=== PATIENT | male | born 1955 | race Caucasian/White ===

== ENCOUNTER 2022-06-13 11:40 | Outpatient (CLI) | payer MEDICARE, BC, SELFPAY | END 2022-06-13 11:41 | disposition home or self-care (01) | LOC: AMB 07-01 14:15 | PROVIDERS: PCP Internal Medicine Addiction Medicine; Visit Provider Emergency Medicine Emergency Medical Services | DX: T16.9XXA Foreign body in ear, unspecified ear, initial encounter (principal) | CPT/HCPCS: A0425; A0427 ==

== ENCOUNTER 2022-12-16 15:40 | Outpatient (CLI) | payer MEDICARE, BC, SELFPAY | END 2022-12-16 15:41 | disposition home or self-care (01) | PROVIDERS: PCP Family Medicine; Visit Provider Family Medicine | DX: Z00.00 Encounter for general adult medical examination without abnormal findings (principal); E66.01 Morbid (severe) obesity due to excess calories; E78.5 Hyperlipidemia, unspecified; I10 Essential (primary) hypertension; R73.03 Prediabetes; R53.83 Other fatigue | CPT/HCPCS: 80053; 80061; 84443 ==

== ENCOUNTER 2023-02-24 10:00 | Outpatient (RCR) | payer MEDICARE, BC, SELFPAY ==
--- NOTE | 2023-01-10 17:18 | PT.OPEX ---
PT [place] Outpatient Eval PT [facility] Outpatient Eval Start: 01/10/23 13:23 Freq: Status: Active Protocol: Document 01/10/23 13:23 RACHEL (Rec: 01/10/23 13:48 RACHEL [id number]) E-signed By Susan Hoover DPT Physical Therapy Outpatient Evaluation Insurance Information Recert Due Date 04/10/23 Insurance Name Medicare B,Blue Cross/Blue Shield Medical Diagnosis L knee OA Treating Diagnosis L knee pain chronic with occasional acute flare ups, quad/VMO weakness, L patella hypomobile, L patella positioned laterally and tracking laterally, limited tolerance for extended standing/walking/stairs Subjective Subjective Patient reports L knee pain, chronic for years with 2 episodes of acute flare up over the last 6-7 months. He reports initial injury/flare up when he stepped out of a van and his L knee bent back wrong. He had increased pain, difficulty walking. Reports he was traveling at the time and had to sleep in a chair with ice to his knee. The pain resolved and he was able to walk and resume activities the next day. States L knee pain flared up again about a month ago. States he is unsure why but he woke up with pain one morning. Reports he used the TM for some walking the day before the flare up but denies any pain when using the TM. Again the L knee pain resolved in about a day. He reports hx of chronic bilateral knee pain with prior knee injections about 6 years ago. He was issued a velcro knee brace from [employer]ICE Llam[employer]. States he is wearing it some of the time, doesn't really notice a difference with/ without the knee brace. L knee pain has been minimal lately, rated 0-2/10. He is using some pain meds for his chronic back pain but denies taking anything for knee pain. He has not been using ice. [employer]ICE Llamas recommended he try icing but he hasn't tried it yet. He reports pain was up to 9/10 back in Jul and about a month ago when the pain flared up, lasting for about a day. Date of Last Physician Visit 12/22/22 Current Work Status Retired Precautions Treatment Precautions/Contraindications depression, HTN, OA Assessment Assessment/Impression Patient is a 67 year old male with L knee pain chronic with occasional acute flare ups, quad/VMO weakness, L patella hypomobile, L patella positioned laterally and tracking laterally, limited tolerance for extended standing/walking/stairs. Pain range the last several weeks 0-2/10. He denies tenderness with palpation L knee region. L patella with lateral tilt and lateral tracking, hypomobile. L knee ROM 0-0- 130 degrees. L quad/VMO weakness noted with lateral patellar tracking, difficulty with SLR exercise. General core/hip/glut weakness with hx of chronic LBP. Patient reports some difficulty with extended standing/walking/ stairs. Patient would benefit from skilled PT for pain/sx management, core/hip/glut/quad /VMO strengthening, improved L patellar mobility, improved L patellar position/tracking, and establishment of HEP. Plan of Care Rehabilitation Potential Good Physical Therapy Goals 1. Decrease/maintain L knee pain at less than/equal to 3/ 10 with daily activities and with the progression of PT activities over the next 4-6 weeks. 2. Improve core/hip/glut/VMO/ LE strength over the next 8-10 weeks for improved patellar position /tracking, decreased stress to knee joint, and decreased knee pain. 3. Improve balance/ proprioception over the next 8 -10 weeks for improved stability with static/dynamic activities, improved mechanics with daily activities, decreased stress to knee joint, and decreased knee pain. 4. Patient will be I with HEP within 10 weeks for progression toward above goals, ongoing self management of pain/sx, ongoing self improvements in core/hip/glut/LE strength, and for return to PLF including daily activities without flare up of pain. Coordination/Communication With Referral Source Treatment Plan/Direct Interventions Manual Therapy,Therapeutic Exercises Frequency/Duration 1x/week Patient Will Be Discharged From Therapy Completion of LTG(s),Skills Plateau,Independent w/HEP, Independently Progressing Evaluation Billing Untimed Code Treatment Minutes 25 Complexity Moderate Certification Information Initial Certification Date 01/10/23 Ending Certification Date 04/10/23 Provider Signature Shows Agreement With POC & Medical Necessity Physician Signature & Date Requested Please Sign/Date Here Physician Comment/Change : Physician NPI Number #
== END 2023-05-06 14:50 | disposition home or self-care (01) ==
PROVIDERS: PCP Family Medicine; Visit Provider Physician Assistant Surgical
DX: M17.12 Unilateral primary osteoarthritis, left knee (principal); M25.562 Pain in left knee; Z51.89 Encounter for other specified aftercare
CPT/HCPCS: 97110; 97140; 97162

== ENCOUNTER 2023-04-04 07:55 | Outpatient (CLI) | payer MEDICARE, BC, SELFPAY | END 2023-04-04 07:56 | disposition home or self-care (01) | LOC: NFLDREF 16:50 | PROVIDERS: PCP Family Medicine; Referring Provider Family Medicine; Visit Provider Family Medicine | DX: R79.89 Other specified abnormal findings of blood chemistry (principal); R73.03 Prediabetes; E78.5 Hyperlipidemia, unspecified | CPT/HCPCS: 80053; 80061 ==

== ENCOUNTER 2023-05-10 07:05 | Outpatient (CLI) | payer MEDICARE, BC, SELFPAY ==
--- NOTE | 2023-05-10 09:17 | W.ANESCHARGE ---
Anesthesia Charges Start Date/Time Anesthesia Start Date: 05/10/23 Anesthesia Start Time: 08:43 Stop Date/Time Anesthesia Stop Date: 05/10/23 Anesthesia Stop Time: 09:14
== END 2023-05-10 07:06 | disposition home or self-care (01) ==
PROVIDERS: PCP Family Medicine; Visit Provider Surgery
DX: Z12.11 Encounter for screening for malignant neoplasm of colon (principal); K62.1 Rectal polyp; K57.30 Diverticulosis of large intestine without perforation or abscess without bleeding; Z86.010 Personal history of colon polyps
CPT/HCPCS: 45385; 811; 88305; J2704

== ENCOUNTER 2023-05-30 14:30 | Outpatient (RCR) | payer MEDICARE, BC, SELFPAY ==
--- NOTE | 2023-02-10 11:24 | PT.OPEX ---
PT [place] Outpatient Eval PT [facility] Outpatient Eval Start: 02/09/23 09:55 Freq: Status: Active Protocol: Document 02/09/23 09:56 JAMIN (Rec: 02/09/23 17:54 JAMIN Laptop) E-signed By Miracle Becerra PT Physical Therapy Outpatient Evaluation Insurance Information Insurance Name Medicare B,Blue Cross/Blue Shield Insurance Information/Comments MEDICARE/BCBS Medical Diagnosis CHRONIC LUMBAR PAIN/LBP M54.50 Treating Diagnosis CHRONIC PAIN G89.[address] TOO GUILLERMO Subjective Subjective PATIENT REPORTS PAIN IN THE MORNING UPON AWAKENING BUT ONCE I GET MOVING IT'S FINE. HE IS CONCURRENTLY BEING TREATED FOR BILATERAL KNEE PAIN. HE STATES,I GET TO THOSE EXERCISES EVER 2-3 DAYS. I KNOW I SHOULD DO THEM EVERY DAY. LASTLY, HE REPORTS A FALL RECENTLY INJURING HIS RIGHT KNEE. Pain Comments LOWER RIGHT FLANK/LUMBAR REGION 03/12 Date of Last Physician Visit 01/18/23 Current Work Status Retired Preferred Name MARIAMA Objective Other/Pertinent Objective Posture Assessment: SLIGHT FWD TRUNK POSTURING, DECREASED LORDOTIC CURVATURE LUMBAR ROM Flexion: WFL UNREMARKABLE repeated flexion: UNREMARKABLE Extension:WFL repeated ext: UNREMARKABLE Right Sidebend: WFL Left Sidebend: WFL LE MMT Hip flexion: R 4+/5 L 4+/5 Hip Extension: R 4/5 L 4/5 Hip abduction: R 4/5 L 4/5 knee extension: R 4+/5 L 4+/5 Knee Flexion: R 4+/5 L 4+/5 Dorsiflexion/heel walk: R 4+/5 L 4+/5 Plantarflexion/toe walk: R 4+/ 5 L 4+/5 Great Toe Extension: R 5/5 L 5 /5 JOINT MOBILITY/PALPATION: GENERALIZED HYPOMOBILITY ABOUT THE LUMBAR VERTEBRA SPECIAL TESTS Straight leg raise: (-) Crossed straight leg raise: (- ) Slump test: (-) Quadrant test: (-) SI/HIPI tests YOSI (-) FADIR (-) SCOUR (-) Gillet Test: (-) Standing forward bend Test: (- ) Gapping and Compression test: (-) TX: PRONE ON ELBOWS X 2MIN PRONE PRESS UPS X 10 HOLD 2 SEC PRONE ALT LE EXT X 10 HOLD 3 SEC STDG EXT 10 X 3 SEC PELVIC ROCKING IN SEATED OR STDG X 10 HOLD 2 SEC Assessment Assessment/Impression PATIENT IS A [address] GUILLERMO REFERRED TO PHYSICAL THERAPY FOR A SECOND DIAGNOSIS OF CHRONIC LOW BACK PAIN TO EVALUATE AND TREAT. PMHX INCLUDE BUT NOT LIMITED TO PRE DMII, CHRONIC CAREGIVER STRESS, ANXIETY, DEPRESSION, HLD, HTN, OBESITY, GLAUCOMA BPH W/URINARY OBSTRUCTION HISTORY, JOSE, OA BILATERAL KNEES, 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 PATIENT IS HERE TODAY D/T CHRONIC LBP WHICH HE DESCRIBES WORSE IN THE MORNING AND FIRST STEPS BUT IS ABLE TO HAVE SYMPTOM RESOLUTION WITHIN ROUGHLY 10- 15 MIN WELL WITH PROLONGED STDG >30 MIN WHEN STDG DURING COOKING. HE IS CONCURRENTLY BEING TREATED FOR BILATERAL KNEE OA AND HAS RECENTLY EXPERIENCED A FALL ON HIS RIGHT KNEE. HE DEMONSTRATES EXCELLENT ROM AND FLEXIBILITY WITH GENERALIZED HYPOMOBILITY OF THE LUMBAR VERTEBRAE NOTING A DECREASED LORDOTIC CURVATURE. THERE ARE NO PROVOCATIONS TEST THAT ELICIT ANY SYMPTOMS THAT BROUGHT HIM HERE TODAY. WE DISCUSSED INCLUDING A WALKING PROGRAM TO HIS REGIME WELL COMPLIANCE WITH HIS CURRENT REHABILITATION PROGRAM INVOLVING HIS KNEES. TODAY, I HAD HIM BEING WORK ON IMPROVING HIS LUMBAR MOBILITY ABOUT THE SPINE ALONG WITH GENERALIZED TRUNK STRETCHING OF THE LOWER LUMBAR REGION AND THORACIC PARASPINALS. HE DOES NOT PARTICULARLY CARE FOR SUPINE LYING THIS INCREASES THE DISCOMFORT ABOUT HIS LUMBAR REGION SO PRONE IS WHAT WE DEFAULTED TO FOR MOBILITY COUPLED WITH THORACIC ROTATION AND PELVIC ROCKING IN SEATED AND/OR STDG. HE PERFORMED EA OF HIS HOME PROGRAM EXERCISES WELL AND WILL ADD TO THIS REGIME HIS NEXT VISIT. PATIENT VERBALIZED UNDERSTANDING OF ALL SKILLED INSTRUCTION AND EDUCATION PROVIDED TODAY AND AGREEABLE TO POC AND FREQ. HE IS APPROPRIATE FOR SKILLED PHYSICAL THERAPY TO ADDRESS TEACHING BACK CARE RULES/ PRECAUTIONS, IMPROVE FUNCTIONAL CORE STRENGTH AND MOBILIZATION OF LUMBAR SPINE. Primary Functional Limitations PROLONGED STDG BED MOBILITY WALKING Plan of Care Rehabilitation Potential Good Physical Therapy Goals 1. PATIENT WILL BE ABLE TO STAND FOR >30 MIN WITH PAIN <2 /10 TO PREPARE MEALS IN 4-6 WEEKS 2. PATIENT WILL DEMONSTRATE COMPLIANCE AND CONSISTENCY WITH HIS HEP AND BE ABLE TO INDEPENDENTLY PROGRESS IN 4-6 WEEKS. 3. PATIENT WILL BE ABLE TO AMB FOR >15 MIN WITH PAIN <2/10 FOR EXERCISE IN 4-6 WEEKS. Coordination/Communication With Referral Source Treatment Plan/Direct Interventions Heat,Ice/Cold/Vasopneumatic, Manual Therapy,Therapeutic Activities,Therapeutic Exercises Frequency/Duration 1X/WK FOR 4-6 WEEKS Patient Will Be Discharged From Therapy Completion of LTG(s), Independently Progressing Discharge Plan Comments DISCHARGE TO SELF WHEN GOALS MET OR MAX POTENTIAL ACHIEVED Evaluation Billing Untimed Code Treatment Minutes 20 PT Eval No Charge No Complexity Moderate Certification Information Provider Signature Shows Agreement With POC & Medical Necessity Physician Signature & Date Requested Please Sign/Date Here Physician Comment/Change : Physician NPI Number #
--- NOTE | 2023-05-30 15:35 | PT.OPDNX ---
PT [place] Outpatient RECERTIFICATIN/DISCHARGE NOTE PT [facility] Outpatient Daily Note Start: 02/09/23 09:55 Freq: Status: Active Protocol: Document 05/30/23 14:35 JAMIN (Rec: 05/30/23 15:34 JAMIN [id number]) E-signed By Miracle Becerra, PT PT OP Daily Progress Note Visit Information Note Type Daily Note,Recert/Progress Note Visit Number 10 Insurance Information Insurance Name Medicare B,Blue Cross/Blue Shield Insurance Information/Comments MEDICARE/BCBS Medical Diagnosis CHRONIC LUMBAR PAIN/LBP M54.50 Treating Diagnosis CHRONIC PAIN G89.[address] TOO GUILLERMO Subjective Pain Comments 11/12 Preferred Name MARIAMA Objective Other/Pertinent Objective Posture Assessment: SLIGHT FWD TRUNK POSTURING, DECREASED LORDOTIC CURVATURE LUMBAR ROM Flexion: WFL UNREMARKABLE repeated flexion: UNREMARKABLE Extension:WFL repeated ext: UNREMARKABLE Right Sidebend: WFL Left Sidebend: WFL LE MMT Hip flexion: R 4+/5 L 4+/5 Hip Extension: R 4/5 L 4/5 Hip abduction: R 4/5 L 4/5 knee extension: R 4+/5 L 4+/5 Knee Flexion: R 4+/5 L 4+/5 Dorsiflexion/heel walk: R 4+/5 L 4+/5 Plantarflexion/toe walk: R 4+/ 5 L 4+/5 Great Toe Extension: R 5/5 L 5 /5 JOINT MOBILITY/PALPATION: GENERALIZED HYPOMOBILITY ABOUT THE LUMBAR VERTEBRA SPECIAL TESTS Straight leg raise: (-) Crossed straight leg raise: (- ) Slump test: (-) Quadrant test: (-) SI/HIPI tests YOSI (-) FADIR (-) SCOUR (-) Gillet Test: (-) Standing forward bend Test: (- ) Gapping and Compression test: (-) Patient Instructed in Risks/Benefits Yes Therapeutic Exercise Therapeutic Exercise Minutes (minutes) 45 Therapeutic Exercise: To Restore TM 2.0 MPH 5 MIN Functional Status SUPINE TRUNK ROTATION 3 X 15 SEC SUPINE HOOKLYING ABD BRACING WITH HIP ADD SQUEEZE X 1MIN HOLD 3 SEC SUPINE HOOKLYING ADD SQUEEZE W /BRIDGE 1MIN HOLD 3 SEC STDG EXT X 10 HOLD 3 SEC STDG TB (BLUE) ROW 2 X 15 HOLD 3 SEC STDG TB (GREEN) S'EXT 2 X 15 HOLD 3 SEC TRUNK EXT 2 X 15 50# QUADRUPED CAT COW INTO CHILD'S POSE X 10 STDG HIP ABD R/L X 15 STDG HIP FLEX R/L X 15 STDG HIP EXT R/L X 15 STDG R/L CIRCLES SIDE STEP R/L 20FT X 3 Treatment Minutes Timed Code Treatment Minutes 45 Total Treatment Time 45 Billing Units Therapeutic Exercise Units 3 Plan of Care Physical Therapy Goals 1. PATIENT WILL BE ABLE TO STAND FOR >30 MIN WITH PAIN <2 /10 TO PREPARE MEALS IN 4-6 WEEKS; GOAL MET 2. PATIENT WILL DEMONSTRATE COMPLIANCE AND CONSISTENCY WITH HIS HEP AND BE ABLE TO INDEPENDENTLY PROGRESS IN 4-6 WEEKS. GOAL MET 3. PATIENT WILL BE ABLE TO AMB FOR >15 MIN WITH PAIN <2/10 FOR EXERCISE IN 4-6 WEEKS. GOAL MET Daily Plan of Care Change POC; See Comments, Discharge Daily Plan of Care Comments PATIENT MISSED HIS LAST APPT SCHEDULED OF DISCHARGE AND RETURNS TODAY. Recertification Information Initial Certification Date 02/10/23 Recertification Start Date 05/30/23 Recertification Due Date 05/30/23 Reasons to Continue Skilled Therapy REVIEW AND PERFORM HIS HEP WITH INSTRUCTION REGARDING PROGRESSION OF THER EX. Rehabilitation Potential GREAT Provider Signature Shows Agreement With POC & Medical Necessity Discharge Note Discharge Summary PATIENT RETURNS TODAY HAVING BEEN ON HIS OWN FOR THE PAST MONTH D/T SCHEDULING CHALLENGES. HE REPORTS CONTINUED GREAT MGMT OF HIS SYMPTOMS AND HAS RECENTLY BEGAN A SUPERVISING EDITOR TRAILER JOB AND WORKING ON MANAGING HIS TIME BETTER TO INCORPORATE HIS EXERCISES AT [address] [place] [address] AND HOME . HE STATES, ?THE EXERCISES HAVE REALLY HELPED ME A LOT.? HE HAS RESUMED WALKING FOR EXERCISE AND REPORTS A 2-3/10 PAIN ON AVERAGE. HE HAS A COMPREHENSIVE PROGRAM TO ADDRESS BLE/CORE STRENGTHENING , SELF MOBILIZATION, AND CARDIOVASCULAR CONDITIONING. HE IS INSTRUCTED TO RETURN SHOULD HE HAVE ANY ISSUES BUT WILL BE OFFICIALLY DISCHARGED TODAY WITH ALL GOALS MET. HE IS IN COMPLETE AGREEMENT WITH PLANS. Date of First Visit for Therapy 02/10/23 Date of Last Visit for Therapy 05/30/23 Initial Primary Functional Limitations BENDING STDG WALKING BED MOBILITY Initial Pain Level 6-7/10 Pain Level at Discharge 2-3/10 Interventions Provided During Treatment Joint Mobilization,Manual Therapy,Neuromuscular Re-Ed, Therapeutic Activities, Therapeutic Exercise Recommendations/Reason for Discharge Met All Therapy Goals Discharge Instructions CONTINUE WITH YOUR HEP AND F/U NEEDED WITH YOUR PHYSICIAN Thank You For This Referral .
== END 2023-06-16 11:10 | disposition home or self-care (01) ==
PROVIDERS: PCP Family Medicine; Visit Provider Family Medicine
DX: M54.50 Low back pain, unspecified (principal); G89.29 Other chronic pain; Z51.89 Encounter for other specified aftercare
CPT/HCPCS: 97110; 97140; 97162

== ENCOUNTER 2023-12-20 21:24 | Emergency (ER) | payer MEDICARE, BC, SELFPAY ==
[2023-12-20 21:29] VITALS: BP 128/76; PULSE 74; RESP 18; TEMP 36.6; O2SAT 92; BMI 36.6
[2023-12-20 21:59] LABS: Appearance Urine Slightly Cloudy (Clear); Bilirubin Urine Negative (Negative); Blood Urine 3+ (Negative); Color Urine Yellow (Yellow); Glucose Urine Negative (Negative); Ketones Urine Negative (Negative); Leukocyte Esterase Urine Negative (Negative); Nitrite Urine Negative (Negative); Protein Urine Trace (Negative); Urobilinogen Urine 0.2 (0.2-1.0); pH Urine 5.5 (5.0-8.5)
[2023-12-20 22:35] LABS: Chloride* 107 mmol/L (96-114); Sodium* 139 mmol/L (135-149)
[2023-12-20 22:38] LABS: Anion Gap 3 mEq/L (7-15); Blood Urea Nitrogen* 28 mg/dL (7-30); Carbon Dioxide* 29 mmol/L (20-32); Creatinine* 1.5 mg/dL (0.5-1.5); Est. Creatinine Clearance* 43.45; Estimated Glomerular Filt Rate 50 ml/min; Glucose* 98 mg/dL (60-115)
[2023-12-20 22:39] LABS: Calcium* 9.3 mg/dL (8.4-10.6)
--- NOTE | 2023-12-20 23:13 | ED.MALEGU ---
HPI - Male Genitourinary General Date Seen: 12/20/23 Chief complaint: Urogenital Problems, Male Stated complaint: Urine in blood Time Seen by Provider: 12/20/23 21:37 Source: patient Mode of arrival: ambulatory Limitations: no limitations History of Present Illness HPI Narrative: Patient is a 68-year-old male who had an episode of hematuria earlier today. When he urinated here in the department he continues to have some bright red blood in his urine. He has absolutely no symptoms. No dysuria, urgency, frequency. No fevers or chills. No back pain or suprapubic pain. He has a history of BPH and a laser TURP. He has had prostate biopsies for an elevated PSA with negative results. No recent injury to his genitalia. He has no testicular pain. He feels that he gets enough to drink. He is a former alcoholic who is treated with Topamax. Related Data Home Medications Medication Instructions Recorded Confirmed bupropion HCl 200 mg tablet,12 hr 200 mg PO QDAY 05/10/22 12/20/23 sustained-release timolol 0.5 % eye drops 1 drp ophthalmic (eye) QDAY 05/10/22 12/20/23 trazodone 50 mg tablet 50 mg PO QDAY 05/10/22 12/20/23 Saccharomyces boulardii 250 mg 250 mg PO BID 12/16/22 12/20/23 capsule (Digest Probiotic (S.boulardii)) multivitamin (Daily Multi-Vitamin 1 tab PO QAM 12/16/22 12/20/23 tablet) turmeric root extract 500 mg 500 mg PO BID 12/16/22 12/20/23 capsule omega-3 fatty acids 1,250 mg 2,500 mg PO QDAY 01/18/23 12/20/23 capsule fluticasone propionate 50 1 spray intranasal QDAY 02/14/23 12/20/23 mcg/actuation nasal spray,suspension Previous Rx's Medication Instructions Recorded chlorthalidone 25 mg tablet 12.5 mg (1/2 x 25 mg) PO QDAY #90 04/06/23 tabs atorvastatin 20 mg tablet 20 mg PO QDAY #90 tabs 07/26/23 topiramate 25 mg tablet 25 mg PO BID #60 tabs 08/01/23 topiramate 50 mg tablet 50 mg PO BID #60 tabs 08/01/23 ciprofloxacin HCl 500 mg tablet 500 mg PO BID #10 tabs 12/20/23 Allergies Allergy/AdvReac Type Severity Reaction Status Date / Time ragweed pollen Allergy Mild Verified 12/20/23 21:35 sulfamethoxazole Allergy Unknown Rash Verified 12/20/23 21:35 [From Bactrim] trimethoprim [From Bactrim] Allergy Unknown Rash Verified 12/20/23 21:35 Review of Systems Narrative: Review of systems is outlined above otherwise noted to be negative. [facility] Medical History (Updated 12/20/23 @ 23:12 by Guillaume Summers MD) Osteoarthritis of patellofemoral joints of both knees ?M17.0 - Bilateral primary osteoarthritis of knee (ICD-10) Prediabetes ?R73.03 - Prediabetes (ICD-10) Caregiver stress ?Z63.6 - Dependent relative needing care at home (ICD-10) Anxiety ?F41.9 - Anxiety disorder, unspecified (ICD-10) History of diverticulitis ?Z87.19 - Personal history of other diseases of the digestive system (ICD-10) Tinea versicolor ?B36.0 - Pityriasis versicolor (ICD-10) Hyperlipidemia ?E78.5 - Hyperlipidemia, unspecified (ICD-10) Essential hypertension ?I10 - Essential (primary) hypertension (ICD-10) Morbid obesity ?E66.01 - Morbid (severe) obesity due to excess calories (ICD-10) JOSE (obstructive sleep apnea) ?G47.33 - Obstructive sleep apnea (adult) (pediatric) (ICD-10) Seasonal allergies ?J30.2 - Other seasonal allergic rhinitis (ICD-10) Rosacea ?L71.9 - Rosacea, unspecified (ICD-10) Primary osteoarthritis of both knees ?M17.0 - Bilateral primary osteoarthritis of knee (ICD-10) Conductive hearing loss ?H90.2 - Conductive hearing loss, unspecified (ICD-10) Benign prostatic hyperplasia with urinary obstruction ?N40.1 - Benign prostatic hyperplasia with lower urinary tract symptoms (ICD-10) ?N13.8 - Other obstructive and reflux uropathy (ICD-10) Depression ?F32.A - Depression, unspecified (ICD-10) Glaucoma ?H40.9 - Unspecified glaucoma (ICD-10) Alcohol use disorder ?F10.90 - Alcohol use, unspecified, uncomplicated (ICD-10) Surgical History (Updated 02/25/23 @ 12:26 by Rakel Olivas) Hx of eye surgery (1999) ?Z98.890 - Other specified postprocedural states (ICD-10) History of local excision of skin lesion (11/25/20) ?Z98.890 - Other specified postprocedural states (ICD-10) History of tonsillectomy (1960) ?Z90.89 - Acquired absence of other organs (ICD-10) History of cataract surgery (1999) ?Z98.49 - Cataract extraction status, unspecified eye (ICD-10) History of appendectomy (1959) ?Z90.49 - Acquired absence of other specified parts of digestive tract (ICD-10) History of transurethral resection of prostate (2015) ?Z98.890 - Other specified postprocedural states (ICD-10) ?Z90.79 - Acquired absence of other genital organ(s) (ICD-10) History of hemicolectomy (2011) ?Z90.49 - Acquired absence of other specified parts of digestive tract (ICD-10) History of colonoscopy (2017) ?Z98.890 - Other specified postprocedural states (ICD-10) Family History Mother Alcohol dependence Brother Alcohol dependence Maternal Grandfather Coronary artery disease Myocardial infarction, Onset Age: 70 Maternal Grandmother Stroke Father Adrenal gland cancer Sister Gastrointestinal stromal tumor Social History (Updated 12/16/22 @ 16:38 by Cherie Garcia MD) Narrative: to , retired small business salesperson women's dresses, no children. has traumatic brain injury Lifetime nonsmoker Alcoholism, currently cutting down just 6 alcoholic drinks a week No regular exercise Smoking Status: Never smoker Do you use any of these nicotine containing products: None Second hand tobacco smoke exposure: No How often do you have a drink containing alcohol: 4 or more times a week How many standard drinks containing alcohol do you have on a typical day: 5 or 6 AUDIT-C Alcohol total score: 6 Non-prescribed substance use: denies use Little interest or pleasure in doing things: several days Feeling down, depressed, or hopeless: several days Exam Narrative: Exam Narrative: Vitals noted. Lungs: Clear to auscultation in all chaves. No wheezes, rales, rhonchi. Heart: Regular rate and rhythm without murmur. Abdomen: Soft and nontender. No guarding, rigidity, rebound. Bowel sounds are normal. No palpable masses. No CVA or suprapubic tenderness. Extremities: No cyanosis or edema. Good distal pulses. Skin: No abnormalities noted of the exposed skin. Neurologic: Awake, alert, fully oriented. Neurologic exam is nonfocal. Const: Vital Signs, click to edit/add: Vital Signs - 24 hr 12/20/23 21:29 Temperature 97.8 F Pulse Rate [Pulse Oximeter] 74 Respiratory Rate 18 Blood Pressure [Ri ght Upper Arm] 128/76 Pulse Oximetry 92 Oxygen Delivery Me thod Room Air Course Course ED Course: Patient seen and examined. His urinalysis shows 3+ blood with 10-25 red blood cells, 2-5 white cells, no bacteria. Basic metabolic panel is normal. CBC was ordered but the machine is currently down. Reevaluation(s) Reevaluation #1: We had a good discussion regarding possibilities for gross hematuria. With the absence of pain and dysuria is possible that this is just asymptomatic bleeding from the prostate bed. Will cover him with antibiotics for five days and have him stay hydrated. If the hematuria is persistent he will need a CT scan of his kidneys and a cystoscopy. We discussed that if this episode resolves and he has further episodes in the future he should have those same test done to rule out malignancy. He does have a urologist that he last saw about eight months ago. Vital Signs Vital signs: Initial Vital Signs Temperature 97.8 F 12/20/23 21:29 Temperature Source Temporal Artery Scan 12/20/23 21:29 Pulse Rate 74 12/20/23 21:29 Respiratory Rate 18 12/20/23 21:29 Blood Pressure 128/76 12/20/23 21:29 Blood Pressure Mean 93 12/20/23 21:29 Blood Pressure Position Sitting 12/20/23 21:29 Pulse Oximetry 92 12/20/23 21:29 Oxygen Delivery Method Room Air 12/20/23 21:29 Vital Signs Temperature 97.8 F 12/20/23 21:29 Pulse Rate 74 12/20/23 21:29 Respiratory Rate 18 12/20/23 21:29 Blood Pressure 128/76 12/20/23 21:29 Pulse Oximetry 92 12/20/23 21:29 Oxygen Delivery Method Room Air 12/20/23 21:29 Temperature 97.8 F 12/20/23 21:29 Pulse Rate 74 12/20/23 21:29 Respiratory Rate 18 12/20/23 21:29 Blood Pressure 128/76 12/20/23 21:29 Pulse Oximetry 92 12/20/23 21:29 Oxygen Delivery Method Room Air 12/20/23 21:29 MDM - Male Genitourinary Lab Data Labs: Lab Results 12/20/23 12/20/23 Range/Units 21:40 21:53 Sodium 139 (135-149) mmol/L Potassium 4.0 (3.6-5.1) mmol/L Chloride 107 (96-114) mmol/L Carbon Dioxide 29 (20-32) mmol/L Anion Gap 3 L (7-15) mEq/L BUN 28 (7-30) mg/dL Creatinine 1.5 (0.5-1.5) mg/dL Estimated Creat Clear 43.45 Estimated GFR 50 ml/min Glucose 98 (60-115) mg/dL Calcium 9.3 (8.4-10.6) mg/dL Urine Color Yellow (Yellow) Urine Appearance Slightly Cloudy A (Clear) Urine pH 5.5 (5.0-8.5) Ur Specific Douglas 1.020 (1.000-1.030) Urine Protein Trace A (Negative) Urine Glucose (UA) Negative (Negative) Urine Ketones Negative (Negative) Urine Blood 3+ A (Negative) Urine Nitrite Negative (Negative) Urine Bilirubin Negative (Negative) Urine Urobilinogen 0.2 (0.2-1.0) Ur Leukocyte Esterase Negative (Negative) Urine RBC 10-25 A (0-2) Urine WBC 2-5 (0-5) Ur Squamous Epith Cells None (None-Few) Urine Bacteria None (None) Discharge Plan Discharge Clinical Impression: Hematuria Patient Disposition: Home, Self-Care Condition: Stable Additional Instructions: Push fluids. Cipro 500 mg twice a day for five days. If the hematuria persists please contact Dr. Garcia to discuss a CT of your kidneys and a visit to the urologist for a cystoscopy. If you have a 2nd episode of hematuria in the future I would suggest those two tests as well. Will contact you if your urine culture shows evidence of infection. Prescriptions: New ciprofloxacin HCl 500 mg tablet 500 mg PO BID Qty: 10 0RF No Action bupropion HCl 200 mg tablet sustained-release 12 hr 200 mg PO QDAY trazodone 50 mg tablet 50 mg PO QDAY timolol 0.5 % drops 1 drp ophthalmic (eye) QDAY Saccharomyces boulardii [Digest Probiotic (S.boulardii)] 250 mg capsule 250 mg PO BID multivitamin [Daily Multi-Vitamin] Tablet 1 tab PO QAM turmeric root extract 500 mg capsule 500 mg PO BID fluticasone propionate 50 mcg/actuation spray,suspension 1 spray intranasal QDAY Rx Instructions: administer into each nostril chlorthalidone 25 mg tablet 12.5 mg PO QDAY Qty: 90 4RF topiramate 25 mg tablet 25 mg PO BID Qty: 60 2RF topiramate 50 mg tablet 50 mg PO BID Qty: 60 2RF omega-3 fatty acids 1,250 mg capsule 2,500 mg PO QDAY atorvastatin 20 mg tablet 20 mg PO QDAY Qty: 90 2RF Follow Up/Referrals: Cherie Garcia MD [Primary Care Provider] - Stand Alone Forms: [facility] Info Instructions
[2023-12-20 23:31] LABS: Basophils Absolute Auto 0.01 K/uL (0.00-0.30); Basophils Percent Auto 0.1 % (0.0-3.0); Eosinophils Absolute Auto 0.16 K/uL (0.00-0.50); Eosinophils Percent Auto 1.8 % (0.0-7.0); Hematocrit 49.1 % (37.0-53.0); Hemoglobin* 16.2 gm/dL (13.5-17.5); Immature Granulocytes Abs Auto 0.07 K/uL (0.00-0.30); Immature Granulocytes Pct Auto 0.8 %; Lymphocytes Absolute Auto 3.61 K/uL (0.90-2.90); Lymphocytes Percent Auto 39.6 % (20-44); Mean Corpuscular HGB Conc 33 gm/dL (32-36); Mean Corpuscular Hemoglobin 30 pg (26-34); Mean Corpuscular Volume 91 fL (80-100); Monocytes Percent Auto 8.4 % (0.0-11.0); Neutrophils Percent Auto 49.3 % (42.0-72.0); Platelet Count* 249 K/uL (140-440); RDW Coefficient of Variation % 13.4 % (11.5-15.5); Red Blood Count 5.37 m/uL (4.30-5.90); White Blood Count* 9.12 K/uL (4.50-11.00)
[2023-12-20 23:34] LABS: Slide Review Reflex No
== END 2023-12-20 23:29 | disposition home or self-care (01) ==
PROVIDERS: Emergency Provider Family Medicine; PCP Family Medicine
DX: R31.9 Hematuria, unspecified (principal)
CPT/HCPCS: 36415; 80048; 81001; 81003; 85025; 99282; 99283

== ENCOUNTER 2024-03-08 15:56 | Outpatient (CLI) | payer MEDICARE, BC, SELFPAY ==
--- OUTSIDE RECORDS SUMMARY | 2024-03-08 16:00 | XMS_ITS | Clinical Summary ---
Author Organization [facility] Address [address] [address] Care Team Providers Care Book Store Associate Name Role Phone John Waters DO Primary Care Provider + Allergies Active Allergy Reactions Criticality Noted Date Comments Fluticasone Other (See Comments) 08/09/2016 Nose bleeds Sulfamethoxazole-Trimethopr im Rash Low 06/19/2017 Medications Medication Sig Dispensed Refills Start Date End Date Status MEDICATION CANNOT BE REORDERED - PLEASE MANUALLY REORDER AND DISCONTINUE THE OLD ORDER [OMEGA-3 FATTY ACIDS-VITAMIN E (FISH OIL) 1,000 MG CAP] Take 3 capsules by mouth daily. 09/14/2014 Active traZODone (DESYREL) 50 MG tablet [TRAZODONE (DESYREL) 50 MG TABLET] Take 50 mg by mouth bedtime. PRN 09/14/2014 Active timolol maleate (TIMOPTIC) 0.5 % ophthalmic solution [TIMOLOL MALEATE (TIMOPTIC) 0.5 % OPHTHALMIC SOLUTION] PALCE 1 DROP OU QAM 3 01/14/2017 Active L.acidoph,saliva-B. bif-S.therm (ACIDOPHILUS PROBIOTIC BLEND) 175 mg cap [L.ACIDOPH,SALIVA-B .BIF-S.THERM (ACIDOPHILUS PROBIOTIC BLEND) 175 MG CAP] Take 175 mg by mouth daily. 10/09/2012 Active PROPYLENE GLYCOL (SYSTANE BALANCE OPHT) [PROPYLENE GLYCOL (SYSTANE BALANCE OPHT)] Apply 1 drop to the affected eye(s) as needed (DRY EYES) 10/07/2017 Active fluticasone (FLONASE) 50 mcg/actuation nasal sprayIndications:Ch ronic allergic rhinitis, unspecified seasonality, unspecified trigger,Cough [FLUTICASONE (FLONASE) 50 MCG/ACTUATION NASAL SPRAY] Two sprays each nostril daily. 16 g 12 01/06/2018 Active buPROPion (WELLBUTRIN SR) 200 MG 12 hr tablet [BUPROPION (WELLBUTRIN SR) 200 MG 12 HR TABLET] Take 200 mg by mouth daily. 08/30/2018 Active folic acid/multivit-min/l utein (CENTRUM SILVER ORAL) [FOLIC ACID/MULTIVIT-MIN/L UTEIN (CENTRUM SILVER ORAL)] Take 1 capsule by mouth Daily at 8:00 am.. 07/27/2019 Active clotrimazole-betame thasone (LOTRISONE) creamIndications:Ti natalee corporis [CLOTRIMAZOLE-BETAM ETHASONE (LOTRISONE) CREAM] Apply 1 application topically as needed. Apply to affected areas on hands. 30 g 1 10/31/2020 Active naproxen (NAPROSYN) 500 MG tabletIndications:L umbosacral spondylosis without myelopathy,Myofasci al pain,Anterolisthesi s of lumbar spine Take 1 tablet (500 mg) by mouth 2 times daily (with meals) 60 tablet 1 12/02/2021 Active cetirizine (ZYRTEC) 10 MG tabletIndications:S easonal allergies TAKE 1 TABLET(10 MG) BY MOUTH DAILY 90 tablet 3 04/08/2022 Active Resolved Problems Problem Noted Date Diagnosed Date Resolved Date Right knee pain 04/21/2020 05/21/2020 Obesity (BMI 35.0-39.9) with comorbidity 06/16/2018 08/30/2018 Immunizations Name Administration Dates Next Due Flu, Unspecified 07/22/2011, 0,07/02/2008,2006 Influenza (High Dose) 3 mukesh nt vaccine 06/11/2019 Influenza Vaccine 65+ (Fluzone HD) 06/23/2020 Influenza Vaccine >6 months,quad, PF 07/21/2018, 07/25/2013 Influenza Vaccine, 6+MO IM (QUADRIVALENT W/PRESERVATIVES) 06/27/2017,06/30/2015,08/07/2014 MMR 06/27/2017,05/27/2017 Pneumo Conj 13-V (2010&after) 06/23/2020 Pneumococcal 23 valent 05/02/2019 TDAP (Adacel,Boostrix) 06/09/2011 Zoster recombinant adjuvante d (SHINGRIX) 11/29/2018,09/08/2018 Zoster vaccine, live 06/30/2015 Family History Medical History Relation Comments Alcoholism Brother 1 Obesity Brother 1 Pancreatitis Brother 2 Cancer Father adrenal gland Obesity Father Heart Disease Maternal Grandfather Heart Disease Maternal Grandmother Alcoholism Mother Obesity Mother Cancer Sister gist cancer Obesity Sister Relation Status Comments Brother 1 Brother 2 Alive Brother 3 Father Maternal Grandfather Maternal Grandmother Mother Sister Social History Tobacco Use Types Packs/Day Years Used Date Smoking Tobacco: Never Smokeless Tobacco: Never Alcohol Use Standard Drinks/Week Comments Yes 21 (1 standard drink = 0.6 oz pu re alcohol) PHQ-2 Answer Date Recorded PHQ-2 Score 0 06/23/2020 Adolescent Education Answer Date Record ed Getting School Help Needed Not on file 07/02 Sex and Gender Information Value Date Recorded Sex Assigned at Male 12/26/2020 1:24 AM CDT Gender Identity Male 12/26/2020 1:24 AM CDT Sexual Orientation Barriga 06/19/2020 3: 12 PM CDT Last Filed Vital Signs Vital Sign Reading Time Taken Comments Blood Pressure 145/84 12/29/2021 3:28 PM CDT Pulse 79 12/29/2021 3:28 PM CDT Temperature 36.7 ??C (98.1 ??F) 12/02/2021 3:14 PM CS T Respiratory Rate 12 10/31/2020 3:02 PM LOGISTICS PLANNING ENGINEER Oxygen Saturation 95% 12/29/2021 3:28 PM CDT Inhaled Oxygen Concentration - - Weight 119.6 kg (263 lb 9.6 oz) 12/02/2021 3:14 PM LOGISTICS PLANNING ENGINEER Height 170.2 cm (5' 7) 12/02/2021 3:14 PM LOGISTICS PLANNING ENGINEER Body Mass Index 41.29 12/02/2021 3:14 PM LOGISTICS PLANNING ENGINEER Plan of Treatment Health Maintenance Due Date Last Done Comments ANNUAL REVIEW OF HM ORDERS 1954 CT COLONOGRAPHY 1954 FIT 1955 FLEX SIG 1954 sDNA (Cologuard) 1955 RSV VACCINE ( & 60+) (1 - 1-dose 60+ series) 2014 MENTAL HEALTH TX PLAN 03/04/2020 04/03/2019 JERICA ASSESSMENT 04/03/2020 04/03/2019, 04/03/2019 DTAP/TDAP/TD IMMUNIZATION (2 - Td or Tdap) 06/09/2021 06/09/2011 FALL RISK ASSESSMENT 06/23/2021 06/23/2020, 04/14/2020, 06/11/2019 PHQ-9 06/23/2021 06/23/2020, 0306/2020, 04/03/2019, Additional history exists COLONOSCOPY 02/22/2023 02/22/2018, 10/24/2007 COLORECTAL CANCER SCREENING 02/22/2023 MEDICARE ANNUAL WELLNESS VISIT 03/29/2023 03/29/2022, 06/23/2020, 06/23/2020, Additional history exists COVID-19 Vaccine ( season) 2023 09/04/2021, 12/26/2020, 11/28/2020 GLUCOSE 06/23/2023 06/23/2020, 06/05, 08/31/2018 PHQ-2 (once per calendar year) 2023 06/23/2020, 06/23/2020, 12/10/2019, Additional history exists INFLUENZA VACCINE (Season Ended) 2024 06/23/2021, 06/23/2020, 06/11/2019, Additional history exists ADVANCE CARE PLANNING 06/23/2025 06/23/2020 , 09/27/2019, 06/11/2019, Additional history exists LIPID 06/23/2025 06/23/2020, 06/05, 08/31/2018, Additional history exists ZOSTER IMMUNIZATION Completed 11/29/2018, 09/08/2018, 06/30/2015 HEPATITIS C SCREENING Completed 07/02/2019 Pneumococcal Vaccine: 65+ Years Completed 06/23/2020, 05/02/2019 HPV IMMUNIZATION Aged Out No longer e ligible based on patient's age to complete this topic IPV IMMUNIZATION Aged Out No longer e ligible based on patient's age to complete this topic MENINGITIS IMMUNIZATION Aged Out No l onger eligible based on patient's age to complete this topic RSV MONOCLONAL ANTIBODY Aged Out No l onger eligible based on patient's age to complete this topic Procedures Procedure Name Priority Date/Time Associated Diagnosis Comments BASIC METABOLIC PANEL Routine 06/23/2020 10:11 AM CDT LIPID PROFILE Routine 06/23/2020 10:11 AM CDT HEPATITIS C ANTIBODY Routine 07/02/2019 8:20 AM CDT COLONOSCOPY - HIM SCAN 02/22/2018 from Last 3 Months or Most Recently Relevant to Health Maintenance Results * (ABNORMAL) Lipid Profile (06/23/2020 10:11 AM CDT) Cholesterol 209(H) <=199 mg/dL 07/07/2020 6:31 PM CDT Triglycerides 83 <=149 mg/dL 07/07/2020 6:31 PM CDT Direct Measure HDL 53 >=40 mg/dL 2019 6:31 PM CDT LDL Cholesterol Calculated 139(H) <=129 mg/dL 07/07/2020 6:31 PM CDT Patient Fasting > 8hrs? Yes 07/07/2020 6:31 PM CDT Blood specimen (specimen) ARTERIAL STRUCTURE / Unknown Venipuncture / Unknown 06/23/2020 10:11 AM CDT 06/23/2020 3:52 PM CDT John Wtaers DO LAB - BLOOD [facility] * Basic metabolic panel (06/23/2020 10:11 AM CDT) Sodium 141 136 - 145 mmol/L 07/07/2020 6:31 PM CDT Potassium 4.8 3.5 - 5.0 mmol/L 07/07/2020 6:31 PM CDT Chloride 107 98 - 107 mmol/L 07/07/2020 6:31 PM CDT Carbon Dioxide (CO2) 25 22 - 31 mmol/L 07/07/2020 6:31 PM CDT Anion Gap 9 5 - 18 mmol/L 07/07/2020 6:31 PM CDT Glucose 97 70 - 125 mg/dL 07/07/2020 6:31 PM CDT Calcium 9.2 8.5 - 10.5 mg/dL 07/07/2020 6:31 PM CDT Urea Nitrogen 17 8 - 22 mg/dL 07/07/2020 6:31 PM CDT Creatinine 0.93 0.70 - 1.30 mg/dL 07/07/2020 6:31 PM CDT GFR Estimate If Black >60 >60 mL/min/1.7 3m2 07/07/2020 6:31 PM CDT GFR Estimate >60 >60 mL/min/1.7 3m2 07/07/2020 6:31 PM CDT Blood specimen (specimen) Venipuncture / Unknown 06/23/2020 10:11 AM CDT 06/23/2020 3:52 PM CDT Narrative 07/07/2020 6:31 PM CDT Fasting Glucose reference range is 70-99 mg/dL per [place] [employer] (ADA) guidelines. John Waters DO LAB - BLOOD [facility] * Hepatitis C antibody (07/02/2019 8:20 AM CDT) Hepatitis C Antibody Negative Negative 07/03/2019 8:24 AM CDT [facility] Blood specimen (specimen) Venipuncture / Unknown 07/02/2019 8:20 AM CDT 07/02/2019 3:20 PM CDT John Waters DO LAB - BLOOD [facility] [address] [place] [id number], [facility] [address] [place] [id number] * COLONOSCOPY - HIM SCAN (02/22/2018) Historical Provider PROCEDURES from Last 3 Months or Most Recently Relevant to Health Maintenance Advance Directives For more information, please contact: [phone] Documents on File Type Date Recorded Patient Disabilities Caregiver Expl anation Power of Community Associate 09/27/2019 12:00 AM POW ER OF PLATFORM POWER TECHNICIAN Power of Community Associate 09/27/2019 10:01 AM Pow er of Community Associate 5-3-11 Advance Directives and Living Will 04/26/2019 9:08 AM Health Care Directiv e 11/07/2007 Healthcare Agents on File Name Relationship Healthcare Agent Relationship Communication Vic Hernandes Spouse Health Care Agent [email or web address] Francesca Valenzuela Relative First Alternat e Health Care Agent Care Teams Book Store Associate Relationship Specialty Start Date End Date Jt, John Garza DO PCP - General Family Practice 04/21/20
--- OUTSIDE RECORDS SUMMARY | 2024-03-08 16:00 | XMS_ITS | Clinical Summary ---
[facility] Address [address] [place] [address] Care Team Providers Care Rodent Control Worker Name Role Phone Larry Huffman DO Primary Care Provider [phone] Source Comments You are receiving this document as you are listed as the primary care provider,follow-up provider, or the patient has been referred to you for consultation.This is in compliance with the Medicare and[facility] EHR Incentive Program,which states Providers who transition their patient to another setting of careor provider of care or refers their patient to another provider of care shouldprovide summary care record for each transition of care or referral. [facility] Allergies Active Allergy Reactions Criticality Noted Date Comments Sulfamethoxazole-Trimethopri m Rash 06/19/2017 Fluticasone Other, see comments 08/09/2016 Nose bleeds Medications Medication Sig Dispensed Refills Start Date End Date Status omega-3 fatty acids (AKA MAXEPA,FISH OIL) 1000 MG capsule Take 2 g by mouth daily. Active Probiotic Product (ACIDOPHILUS PROBIOTIC BLEND) Take 1 Cap by mouth daily. 10/09/2012 Active wheat dextran (BENEFIBER) powder Take 1 Tbsp by mouth daily (every 24 hours). LW Addl Instr:Stir powder into 8 oz of liquid or soft food. 08/14/2007 Active metroNIDAZOLE (AKA METROGEL) 0.75 % gel APPLY TO THE AFFECTED AREA daily PRN 3 02/29/2016 Active Multiple Vitamins-Iron (MULTIVITAMIN/IRON OR) Take 1 Tab by mouth daily. Active montelukast (SINGULAIR) 10 MG tablet Take 10 mg by mouth every evening. Active Eyelid Cleansers (AVENOVA) 0.01 % SOLN Apply 1 [place] to both eye lids two times a day. Active bacitracin 500 UNIT/GM eye ointment Apply 0.5 Inches to both eye lids daily. Active FOLIC ACID OR Take 80 mcg by mouth daily. Active cyanocobalamin 100 MCG tablet Take 100 mcg by mouth daily. Active thiamine 100 MG tablet Take 100 mg by mouth daily. Active azelastine (ASTELIN) 0.1 % nasal solution Place 1 [place] into both nostrils daily. Active buPROPion (WELLBUTRIN XL) 150 MG 24 hour release tablet Take 150 mg by mouth daily. Active timolol (BETIMOL) 0.5 % eye drop solution Place 1 Drop into both eyes daily. Active traZODone (DESYREL) 50 MG tablet Take 50 mg by mouth daily at bedtime. Active polyethylene glycol (MIRALAX) packetIndications:C onstipation Take 1 Packet by mouth daily. Indications: Constipation 30 Each 06/15/2017 Active Additional Information Patient not taking.Reported on 03/13/2018 senna (SENOKOT) 8.6 MG tabletIndications:C onstipation Take 1-2 Tabs by mouth two times daily as needed for Constipation. Indications: Constipation 30 Tab 06/15/2017 Active Additional Information Patient not taking.Reported on 03/13/2018 predniSONE (DELTASONE) 20 MG tablet Take 2 Tabs by mouth daily. 20 Tab 06/18/2017 Active Additional Information Patient not taking.Reported on 03/13/2018 triamcinolone acetonide (KENALOG) 0.1 % cream Apply topically two times a day. 45 g 06/18/2017 Active naltrexone (REVIA) 50 MG tablet Take 50 mg by mouth. Ac tive chlorthalidone (HYGROTON) 25 MG tablet 10/31/2021 Active Active Problems Problem Noted Date Diagnosed Date Gross hematuria 06/05/2017 Bladder obstruction 06/05/2017 Benign prostatic hyperplasia with urinary obstru ction 03/23/2017 Overview: Added automatically from request for surgery [id number] Conductive hearing loss 11/21/2014 Overview: Epic Prostatism 03/30/2012 Major depressive disorder, single episode 2003 Overview: LW Onset: [id number] ; Depression Major 1episode NOS Glaucoma Diverticulitis Depression, major Immunizations Name Administration Dates Next Due Flu Vac (3+ yrs) 07/22/2011, 0,07/02/2008, 007 Influenza Vaccine QIV 3+ yrs 100% Pres Free ([facility]) 07/25/2013 Tdap 06/09/2011 Family History Relation Name Status Comments Father (Age 58) adrenal ca ncer Mother (Age 66) cirrhosis Brother (Age 52) cirrhosis Sister (Age 72) GIST tumor s Social History Tobacco Use Types Packs/Day Years Used Date Smoking Tobacco: Never Smokeless Tobacco: Never Alcohol Use Standard Drinks/Week Comments Yes 3.3 (1 standard drink = 0.6 oz p ure alcohol) Sex and Gender Information Value Date Recorded Sex Assigned at Male 05/29/2021 11:31 AM CDT Gender Identity Male 05/29/2021 11:31 AM CDT Sexual Orientation Barriga 05/29/2021 11 :31 AM CDT Last Filed Vital Signs Vital Sign Reading Time Taken Comments Blood Pressure 105/80 03/28/2019 10:30 AM CDT Pulse 70 03/28/2019 10:30 AM CDT Temperature 35.7 ??C (96.3 ??F) 04/08/2021 6:52 PM CD T Respiratory Rate 16 06/18/2017 3:26 PM CDT Oxygen Saturation 94% 06/15/2017 11:26 AM CDT Inhaled Oxygen Concentration - - Weight 111.6 kg (246 lb) 04/08/2021 6:52 PM CDT Height 170.2 cm (5' 7) 04/08/2021 6:52 PM CDT Body Mass Index 38.53 04/08/2021 6:52 PM CDT Plan of Treatment Health Maintenance Due Date Last Done Comments Hep C Screening (Preventive Services) 1955 Cholesterol 06/09/2016 06/09/2011 Colonoscopy 10/24/2017 10/24/2007, 10/04 (Completed) Medicare Annual Wellness Visit 06/11/2020 06/11/2019 DTaP/Tdap/Td (2 - Tdap) 06/09/2021 06/09/2011 COVID-19 Vaccine ( season) 2023 07/07/2022, 02/04/2022, 09/04/2021, Additional history exists Influenza (Season Ended) 2024 022, 06/23/2021, 06/23/2020, Additional history exists Zoster/Shingles Completed 11/29/2018, 04/2018, 06/30/2015 Pneumococcal 65+ Yrs Completed 06/23/2020, 05/02/20 PSA Screening Discussion Discontinued 023, 11/26/2021, 05/25/2021, Additional history exists HepA Aged Out No longer eligi ble based on patient's age to complete this topic HepB Aged Out No longer eligi ble based on patient's age to complete this topic Hib Aged Out No longer eligi ble based on patient's age to complete this topic IPV (Polio) Aged Out No longer eligi ble based on patient's age to complete this topic MCV4 Aged Out No longer eligi ble based on patient's age to complete this topic Procedures Procedure Name Priority Date/Time Associated Diagnosis Comments PROSTATIC SPECIFIC ANTIGEN (DIAGNOSTIC F/U) Routine 11/30/2022 11:49 AM CONTINUOUS PICKLING LINE PICKLER BPH with obstruction/lower urinary tract symptoms LIPID PANEL & DIRECT LDL (IF NEEDED) Routine 06/09/2011 10:35 AM CDT COLONOSCOPY S 10/24/2007 12:00 AM CONTINUOUS PICKLING LINE PICKLER from Last 3 Months or Most Recently Relevant to Health Maintenance Results * (ABNORMAL) Prostatic Specific Antigen (Diagnostic F/U) (11/30/2022 11:49 AM CONTINUOUS PICKLING LINE PICKLER) Prostatic Specific Antigen 5.0(H) 0.0 - 4.0 ng/mL 11/30/2022 7:04 PM CONTINUOUS PICKLING LINE PICKLER [facility] Blood Venipuncture / Unknown 11/30/2022 11:49 AM CONTINUOUS PICKLING LINE PICKLER 11/30/2022 11:49 AM CONTINUOUS PICKLING LINE PICKLER Narrative [facility] - 11/30/2022 7:04 PM CONTINUOUS PICKLING LINE PICKLER The Blas PSA Chemiluminescent immunoassay is used. Results obtained with different test methods or kits cannot be used interchangeably. Guillaume Mercer MD LAB_1 [facility] [address] [place] [address], [facility] * LIPID PANEL AND DIRECT LDL(IF NEEDED) (06/09/2011 10:35 AM CDT) Cholesterol 183 <200 mg/dL [facility] Triglyceride 87 40 - 150 mg/dL [facility] HDL 54 >40 mg/dL [facility] LDL, Calc. 112 mg/dL [facility] CHOL/HDL 3.39 Ratio [facility] 06/09/2011 10:3 5 AM CDT 06/09/2011 11:00 AM CDT Narrative [facility] - 06/09/2011 12:20 PM CDT Narrative: This order was split into 2 orders: ??[id number], [id number] Cooper Whitlock MD LAB_1 Performing Organization Address [facility] Co de Phone Number [facility] [address] [place] [address] * COLONOSCOPY S (10/24/2007 12:00 AM CONTINUOUS PICKLING LINE PICKLER) Narrative Transcriptions Santo Major MD - 10/24/2007 12:00 AM CST Santo Major MD DUMMY/OTHER/AR from Last 3 Months or Most Recently Relevant to Health Maintenance Advance Directives * Full Code (Latest Code Status on File) Date Activated Date Inactivated Comments 06/14/2017 5:57 AM 06/15/2017 3:16 PM * Full Code Date Activated Date Inactivated Comments 06/12/2017 5:48 AM 06/14/2017 5:57 AM * Full Code Date Activated Date Inactivated Comments 06/05/2017 1:12 AM 06/06/2017 11:35 PM * Full Code Date Activated Date Inactivated Comments 05/10/2017 6:21 AM 05/10/2017 5:21 PM * Full Code Date Activated Date Inactivated Comments 08/14/2012 2:05 PM 08/19/2012 3:15 PM Care Teams Rodent Control Worker Relationship Specialty Start Date End Date Larry Huffman DO [address] [place] [address] PCP - General Family Practice 12/01/21
--- OUTSIDE RECORDS SUMMARY | 2024-03-08 16:00 | XMS_ITS | Encounter Summary ---
Author Organization [place] Address [address] [place] [address] Care Team Providers Care Precinct Police Sergeant Name Role Phone John Waters DO Primary Care Provider + John Waters DO Unavailable [phone] Encounter Details Date Type Department Care Team (Late st Contact Info) Description 10/10/2014 Records - [facility] CONVERSION Scan, Non-Provider Social History Tobacco Use Types Packs/Day Years Used Date Smoking Tobacco: Never Assessed Sex and Gender Information Value Date Recorded Sex Assigned at Male 12/26/2020 1:24 AM CDT Gender Identity Male 12/26/2020 1:24 AM CDT Sexual Orientation Barriga 06/19/2020 3: 12 PM CDT documented as of this encounter Plan of Treatment Not on file documented as of this encounter Visit Diagnoses Not on filedocumented in this encounter Additional Health Concerns Infection Onset Date Last Indicated Resolved Time Rule Out COVID-19 05/15/2020 05/15/2020 05/17/2020 11:26 AM CDT documented as of this encounter Care Teams Precinct Police Sergeant Relationship Specialty Start Date End Date John Waters DO PCP - General Family Practice 04/21/20 John Waters DO [address] [place] [address] Assigned PCP 03/18/21 11/24/23 documented as of this encounter
--- OUTSIDE RECORDS SUMMARY | 2024-03-08 16:00 | XMS_ITS | Encounter Summary ---
Author Organization [place] Address [address] [facility] [place] [address] Care Team Providers Care Regulator Operator Name Role Phone John Waters DO Primary Care Provider + John Waters DO Unavailable [phone] Encounter Details Date Type Department Care Team (Late st Contact Info) Description 06/23/2017 Records - [facility] CONVERSION Scan, Non-Provider [...] documented as of this encounter Care Teams Regulator Operator Relationship Specialty Start Date End Date John Waters DO PCP - General Family Practice 04/21/20 John Waters DO [address] [place] [address] Assigned PCP 03/18/21 11/24/23 documented as of this encounter
--- OUTSIDE RECORDS SUMMARY | 2024-03-08 16:00 | XMS_ITS | Encounter Summary ---
Author Organization [facility] Address [address] [place] [address] Care Team Providers Care Sock Knitting Machine Operator Name Role Phone Larry Huffman DO Primary Care Provider [phone] Reason for Visit * Reason Comments Hematuria Encounter Details Date Type Department Care Team (Late st Contact Info) Description 06/12/2017 Nurse Triage Careline [address] [place], [place] [address] Unassigned, Provider [address] [place] [address] Hematuria Social History Tobacco Use Types Packs/Day Years Used Date Smoking Tobacco: Never Smokeless Tobacco: Never Alcohol Use Standard Drinks/Week Comments Yes 3.3 (1 standard drink = 0.6 oz p ure alcohol) Sex and Gender Information Value Date Recorded Sex Assigned at Male 05/29/2021 11:31 AM CDT Gender Identity Male 05/29/2021 11:31 AM CDT Sexual Orientation Barriga 05/29/2021 11 :31 AM CDT documented as of this encounter Nursing Notes * Kathryn Calloway RN - 06/12/2017 1:40 AM CDT Clinician actions requested: FYI Next steps: Document further recommendations and route to appropriate person or pool. Patient IS expecting a call back from Care Team. Additional Information: Patient was advised to f/u with Dr. Mercer on Tuesday per CareLine TE dated 06/11/2017. Patient would like Dr. Mercer aware of situation and would like a call re: plan for follow-up. Reason for Disposition ? ? Passing pure blood or large blood clots (i.e., size > a dime) (Exception: gary or small strands) Answer Assessment - Initial Assessment Questions Passed two big blood clots in urine. First was 4 inches long second was 1.5 inches 1. COLOR of URINE: Describe the color of the urine. (e.g., tea-colored, pink, red, blood clots, bloody) Sanchez colored 2. ONSET: When did the bleeding start? 01:30 3. EPISODES: How many times has there been blood in the urine? or How many times today? *No Answer* 4. PAIN with URINATION: Is there any pain with passing your urine? If so, ask: How bad is the pain? (Scale 1-10; or mild, moderate, severe) - MILD - complains slightly about urination hurting - MODERATE - interferes with normal activities - SEVERE - excruciating, unwilling or unable to urinate because of the pain *No Answer* 5. FEVER: Do you have a fever? If so, ask: What is your temperature, how was it measured, and when did it start? *No Answer* 6. ASSOCIATED SYMPTOMS: Are you passing urine more frequently than usual? *No Answer* 7. OTHER SYMPTOMS: Do you have any other symptoms? (e.g., back/flank pain, abdominal pain, vomiting) tired 8. : Is there any chance you are ? When was your last menstrual period? NA Protocols used: URINE - BLOOD IN-ADULT- Advised patient/caller to call back CareLine if there are further questions or concerns or to be seen if situation becomes emergent. The CareLine is available 25/04. Kathryn Calloway RN 06/12/2017, 1:44 AM * Kathryn Calloway RN - 06/12/2017 1:36 AM CDT Verified patient identity using three identifiers: Yes Situation/Background (brief explanation of current symptoms/situation): Urine is sanchez red, and passing large clots. Reviewed with patient pertinent medical history(as it related to the call): Yes Reviewed with patient pertinent medications (as they relate to call): Yes * Tamara Butts - 06/12/2017 1:32 AM CDT Which care system or clinic is the patient normally seen at? Other (Clinic Name)[facility]. Situation: Medical: Pt passed a clot in urine. Plan:The current callback time to speak with a nurse is 1/2 hr. If your symptoms change or worsen, or if you have not received a call back in the stated timeframe, please call us back at [phone].. documented in this encounter Plan of Treatment Not on file documented as of this encounter Visit Diagnoses Not on filedocumented in this encounter Care Teams Sock Knitting Machine Operator Relationship Specialty Start Date End Date Larry Huffman DO [address] [place] [address] PCP - General Family Practice 12/01/21 documented as of this encounter
--- OUTSIDE RECORDS SUMMARY | 2024-03-08 16:00 | XMS_ITS | Encounter Summary ---
Author Organization [place] Address [address] [place] [address] Care Team Providers Care Jury Consultant Name Role Phone John Waters DO Primary Care Provider + John Waters DO Unavailable Encounter Details Date Type Department Care Team (Late st Contact Info) Description 05/14/2020 Records - [facility] CONVERSION Scan, Non-Provider Social History Tobacco Use Types Packs/Day Years Used Date Smoking Tobacco: Never Assessed Sex and Gender Information Value Date Recorded Sex Assigned at Male 12/26/2020 1:24 AM CDT Gender Identity Male 12/26/2020 1:24 AM CDT Sexual Orientation Barriga 06/19/2020 3: 12 PM CDT COVID-19 Exposure Response Date Recorded In the last month, have you been in contact with someone who was confirmed or suspected to have Coronavirus / COVID-19? Unable to assess 05/15/2020 1:59 PM CDT documented as of this encounter Plan of Treatment Not on file documented as of this encounter Visit Diagnoses Not on filedocumented in this encounter Additional Health Concerns Infection Onset Date Last Indicated Resolved Time Rule Out COVID-19 05/15/2020 05/15/2020 05/17/2020 11:26 AM CDT Assessment Noted Time PHQ-9 Depression Total Score: 2 02/27/20 21 1:23 AM CDT documented as of this encounter Care Teams Jury Consultant Relationship Specialty Start Date End Date John Waters DO PCP - General Family Practice 04/21/20 John Waters DO [address] [place] [address] Assigned PCP 03/18/21 11/24/23 documented as of this encounter
--- OUTSIDE RECORDS SUMMARY | 2024-03-08 16:00 | XMS_ITS | Encounter Summary ---
Author Organization [place] Address [address] [facility] [place] [address] Care Team Providers Care Sonography Technologist Name Role Phone John Waters DO Primary Care Provider + John Waters DO Unavailable [phone] Reason for Visit * Reason Comments Medication Refill Encounter Details Date Type Department Care Team (Late st Contact Info) Description 04/07/2022 Refill [facility] [address] [place] [id number] John Waters DO [address] [place] [address] Medication Refill Social History Tobacco Use Types Packs/Day Years Used Date Smoking Tobacco: Never Smokeless Tobacco: Never Alcohol Use Standard Drinks/Week Comments Yes 21 (1 standard drink = 0.6 oz pu re alcohol) PHQ-2 Answer Date Recorded PHQ-2 Score 0 06/23/2020 Sex and Gender Information Value Date Recorded Sex Assigned at Male 12/26/2020 1:24 AM CDT Gender Identity Male 12/26/2020 1:24 AM CDT Sexual Orientation Barriga 06/19/2020 3: 12 PM CDT documented as of this encounter Miscellaneous Notes * Telephone Encounter - Jazmin Morgan RN - 04/08/2022 1:49 PM CDT Routing refill request to provider for review/approval because: Patient needs to be seen because it has been more than 1 year since last office visit. Age 66 Break in medication Last Written Prescription Date: 11/12/2020 Last Fill Quantity: 60, # refills: 2 Last office visit provider: 10/31/2020 Requested Prescriptions Pending Prescriptions Disp Refills ??? cetirizine (ZYRTEC) 10 MG tablet [Pharmacy Med Name: CETIRIZINE 10MG TABLETS] 60 tablet 2 Sig: TAKE 1 TABLET(10 MG) BY MOUTH DAILY Antihistamines Protocol Failed - 04/08/2022 1:49 PM Failed - Patient is 3-64 years of age Apply weight-based dosing for peds patients age 3 - 12 years of age. Forward request to provider for patients under the age of 3 or over the age of 64. Failed - Recent (12 mo) or future (30 days) visit within the authorizing provider's specialty Patient has had an office visit with the authorizing provider or a provider within the authorizing providers department within the previous 12 mos or has a future within next 30 days. See Patient Info tab in inbasket, or Choose Columns in Meds & Orders section of the refill encounter. Passed - Medication is active on med list Jazmin Morgan RN 04/08/22 1:49 PM documented in this encounter Plan of Treatment Not on file documented as of this encounter Visit Diagnoses Diagnosis Seasonal allergies Allergic rhinitis, cause unspecified documented in this encounter Additional Health Concerns Assessment Noted Time PHQ-9 Depression Total Score: 5 02/26/20 21 10:27 PM CDT documented as of this encounter Care Teams Sonography Technologist Relationship Specialty Start Date End Date John Waters DO PCP - General Family Practice 04/21/20 John Waters DO [address] [facility] [place] [place] [address] Assigned PCP 03/18/21 11/24/23 documented as of this encounter
--- OUTSIDE RECORDS SUMMARY | 2024-03-08 16:00 | XMS_ITS | Referral Summary ---
Author Organization [place] Address [address] [facility] [place] [address] Care Team Providers Care Descriptive Catalog Librarian Name Role Phone John Waters DO Primary [...] d (SHINGRIX) 11/29/2018,09/08/2018 Zoster vaccine, live 06/30/2015 Social History Tobacco Use Types Packs/Day Years [...] T Respiratory Rate 12 10/31/2020 3:02 PM MOLD SETTER Oxygen Saturation 95% 12/29/2021 3:28 PM CDT Inhaled Oxygen Concentration - - Weight 119.6 kg (263 lb 9.6 oz) 12/02/2021 3:14 PM MOLD SETTER Height 170.2 cm (5' 7) 12/02/2021 3:14 PM MOLD SETTER Body Mass Index 41.29 12/02/2021 3:14 PM MOLD SETTER Plan of Treatment Not on file Procedures Procedure Name Priority Date/Time Associated Diagnosis [...] AM CDT 06/23/2020 3:52 PM CDT John Waters DO LAB - [...] Glucose reference range is 70-99 mg/dL per [place] [employer] (ADA) guidelines. John Waters DO LAB - BLOOD LYNETTE SUNSHINE * Hepatitis C antibody (07/02/2019 8:20 AM CDT) Hepatitis C Antibody Negative Negative 07/03/2019 8:24 AM CDT [facility] Blood specimen (specimen) Venipuncture / Unknown 07/02/2019 8:20 AM CDT 07/02/2019 3:20 PM CDT John Waters DO LAB - BLOOD LYNETTE SUNSHINE Performing Organization Address City/State/[facility] Co de Phone Number [facility] [address] [place] [address], [facility] [address] [place] [address] * COLONOSCOPY - HIM SCAN (02/22/2018) Historical Provider PROCEDURES from Last 3 Months or Most Recently Relevant to Health Maintenance Advance Directives For more information, please contact: [phone] Documents on File Type Date Recorded Patient Inspector Brake Lining Expl anation Power of Outside Machinist Apprentice 09/27/2019 12:00 AM POW ER OF HOME ECONOMICS TEACHER Power of Outside Machinist Apprentice 09/27/2019 10:01 AM Pow er of Outside Machinist Apprentice 5-3-11 Advance Directives and Living Will 04/26/2019 9:08 AM Health Care Directiv e 11/07/2007 Healthcare Agents on File Name Relationship Healthcare Agent Relationship Communication Vic Hernandes Spouse Health Care Agent [email or web address] Relative First Alternat e Health Care Agent Care Teams Descriptive Catalog Librarian Relationship Specialty Start Date End Date Restad, John Garza DO PCP - General Family Practice 04/21/20
--- OUTSIDE RECORDS SUMMARY | 2024-03-08 16:00 | XMS_ITS | Encounter Summary ---
Author Organization [place] Address [address] [place] [address] Care Team Providers Care Mechanical Maintenance Technician Name Role Phone Larry Huffman DO Primary Care Provider [phone] Encounter Details Date Type Department Care Team (Late st Contact Info) Description 06/12/2017 Consent for Procedure/Treatme nt Med Surg [address] [place] [address] [facility] INFORMED CONSENT Social History Tobacco Use Types Packs/Day Years [...] AM CDT documented as of this encounter Plan of Treatment Not on file documented as of this encounter Visit Diagnoses Not on filedocumented in this encounter Care Teams Mechanical Maintenance Technician Relationship Specialty Start Date End Date Larry Huffman DO [address] [place] [address] PCP - General Family Practice 12/01/21 documented as of this encounter
--- OUTSIDE RECORDS SUMMARY | 2024-03-08 16:01 | XMS_ITS | Encounter Summary ---
Author Organization [facility] Address [address] [place] [address] Care Team Providers Care Mergers And Acquisitions Attorney Name Role Phone Larry Huffman DO Primary Care Provider [phone] Encounter Details Date Type Department Care Team (Late st Contact Info) Description 05/28/2017 Emergency Room External to External, [place] [address] [facility], BLOOD IN URINE Social History Tobacco Use Types Packs/Day Years [...] on filedocumented in this encounter Care Teams Mergers And Acquisitions Attorney Relationship Specialty Start Date End Date Larry Huffman DO [address] [place] [address] PCP - General Family Practice 12/01/21 documented as of this encounter
--- OUTSIDE RECORDS SUMMARY | 2024-03-08 16:01 | XMS_ITS | Encounter Summary ---
Author Organization [employer] Address [address] [place] [address] Care Team Providers Care Electrician Marine Name Role Phone Larry Huffman DO Primary Care Provider [phone] Encounter Details Date Type Department Care Team (Late st Contact Info) Description 05/30/2017 Scanned History External to Transferred Record, Provider [facility] Social History Tobacco Use Types Packs/Day Years [...] on filedocumented in this encounter Care Teams Electrician Marine Relationship Specialty Start Date End Date Larry Huffman DO [address] [place] [address] PCP - General Family Practice 12/01/21 documented as of this encounter
--- OUTSIDE RECORDS SUMMARY | 2024-03-08 16:01 | XMS_ITS | Encounter Summary ---
Author Organization [employer] Address [address], [place] [address] Care Team Providers Care Licensed Sales Producer Name Role Phone Larry Huffman DO Primary Care Provider Encounter Details Date Type Department Care Team (Late st Contact Info) Description 08/14/2012 Consent for Procedure/Treatme nt Med Surg [address] [place] [address] [facility], Provider [facility] INFORMED CONSENT Social History Tobacco Use Types Packs/Day Years Used Date Smoking Tobacco: Never Smokeless Tobacco: Never Alcohol Use Standard Drinks/Week Comments Yes 2.5 (1 standard drink = 0.6 oz p ure alcohol) Sex and Gender Information Value Date Recorded Sex Assigned at Male 05/29/2021 11:31 AM CDT Gender Identity Male 05/29/2021 11:31 AM CDT Sexual Orientation Barriga 05/29/2021 11 :31 AM CDT documented as of this encounter Progress Notes * [facility], Provider - 08/14/2012 12:00 AM CST TER MOLDER documented in this encounter Plan of Treatment Not on file documented as of this encounter Visit Diagnoses Not on filedocumented in this encounter Care Teams Licensed Sales Producer Relationship Specialty Start Date End Date Larry Huffman DO [address] [place] [address] PCP - General Family Practice 12/01/21 documented as of this encounter
--- OUTSIDE RECORDS SUMMARY | 2024-03-08 16:01 | XMS_ITS | Encounter Summary ---
Author Organization [employer] Address [address] [place] [address] Care Team Providers Care Field Aide Name Role Phone Larry Huffman DO Primary Care Provider Encounter Details Date Type Department Care Team (Late st Contact Info) Description 06/16/2012 Consent for Procedure/Treatme nt [facility] [address] [place] [address] [facility], Provider CONSENT FOR CONTRAST Social History Tobacco Use Types Packs/Day Years [...] as of this encounter Progress Notes * [facility], Provider - 06/16/2012 12:00 AM CDT documented in this encounter Plan of Treatment Not on file documented as of this encounter Visit Diagnoses Not on filedocumented in this encounter Care Teams Field Aide Relationship Specialty Start Date End Date Larry Huffman DO [address] [place] [address] PCP - General Family Practice 12/01/21 documented as of this encounter
--- OUTSIDE RECORDS SUMMARY | 2024-03-08 16:01 | XMS_ITS | Encounter Summary ---
Author Organization [employer] Address [address], [place] [address] Care Team Providers Care Account Services Specialist Name Role Phone Larry Huffman DO Primary Care Provider [phone] Reason for Visit * Reason Comments Urine, Blood in with clots Encounter Details Date Type Department Care Team (Late st Contact Info) Description 06/11/2017 Nurse Triage [facility] [address] [place] [address] Unknown, Physician [address] [place], [place] [id number] Urine, Blood in (with clots) Social History Tobacco Use Types Packs/Day Years [...] as of this encounter Nursing Notes * Catrina York RN - 06/11/2017 6:55 PM CDT consultation Urology ; Reviewed pt history and current symptoms. advised to see on Tuesday, RN advised to message Him, as long as pt is able topee, no blood, no more clots or fever or pain. If develops additional sx to call back to [facility]Line. To increase fluids, clear liquids. TORB. Catrina Armendariz RN 06/11/2017, 6:57 PM Pt informed agrees with this plan * Catrina York RN - 06/11/2017 6:40 PM CDT Reason for Disposition ??? Pain or burning with passing urine Most likely r/t recent catheterization. Answer Assessment - Initial Assessment Questions 1. COLOR of URINE: Describe the color of the urine. (e.g., tea-colored, pink, red, blood clots, bloody) Currently cloudy 2. ONSET: When did the bleeding start? A few hours ago. 3. EPISODES: How many times has there been blood in the urine? or How many times today? 2 today and a 5 inch clot. 4. PAIN with URINATION: Is there any pain with passing your urine? If so, ask: How bad is the pain? (Scale 1-10; or mild, moderate, severe) - MILD - complains slightly about urination hurting - MODERATE - interferes with normal activities - SEVERE - excruciating, unwilling or unable to urinate because of the pain Mild discomfort for a second. Feels like having mild bladder spasms enough to be aware of them. 5. FEVER: Do you have a fever? If so, ask: What is your temperature, how was it measured, and when did it start? Not that is aware of. 6. ASSOCIATED SYMPTOMS: Are you passing urine more frequently than usual? Passing normal amounts good stream not changes. 7. OTHER SYMPTOMS: Do you have any other symptoms? (e.g., back/flank pain, abdominal pain, vomiting) Fatigue more so than usual, I just feel weak since discharge last week. 8. : Is there any chance you are ? When was your last menstrual period? Not asked. Protocols used: URINE - BLOOD IN-ADULT- * Catrina York RN - 06/11/2017 6:35 PM CDT Verified patient identity using three identifiers: Yes x 3 Situation/Background (brief explanation of current symptoms/situation): Issues with clots and hematurea. Two hours ago pt urinated and passed a large clot as he had earlier when had problems. Has hadclear urin for days. 5 inch clot and brandon red urine. Since then has has light pink urine water melon colored and then cloudy and no blood. Reviewed with patient pertinent medical history(as it related to the call): Yes PVP, 2 admissions to hospital in last 2 weeks for Post op bleeding and clots. Reviewed with patient pertinent medications (as they relate to call): Yes * Mariana Mahan - 06/11/2017 6:27 PM CDT Which care system or clinic is the patient [place] seen at? [facility] Situation: Medical:Pt states he has blood in urine with large clots: Plan:Call transferred directly to [facility]Line nurse. documented in this encounter Plan of Treatment Not on file documented as of this encounter Visit Diagnoses Not on filedocumented in this encounter Care Teams Account Services Specialist Relationship Specialty Start Date End Date Larry Huffman DO [address] [place] [address] PCP - General Family Practice 12/01/21 documented as of this encounter
--- OUTSIDE RECORDS SUMMARY | 2024-03-08 16:01 | XMS_ITS | Encounter Summary ---
Author Organization [employer] Address [address] [place] [address] Care Team Providers Care Computer Designer Name Role Phone Larry Huffman DO Primary Care Provider Encounter Details Date Type Department Care Team (Late st Contact Info) Description 05/10/2017 Consent for Procedure/Treatme nt Same Day Surgery [address] [place] [address] [facility] INFORMED CONSENT Social History Tobacco Use Types [...] on filedocumented in this encounter Care Teams Computer Designer Relationship Specialty Start Date End Date Larry Huffman DO [address] [place] [address] PCP - General Family Practice 12/01/21 documented as of this encounter
== END 2024-03-08 15:57 | disposition home or self-care (01) ==
PROVIDERS: PCP Family Medicine; Visit Provider Family Medicine
DX: R42 Dizziness and giddiness (principal); I10 Essential (primary) hypertension; R20.0 Anesthesia of skin; R73.03 Prediabetes
CPT/HCPCS: 80053; 82607; 84443

== ENCOUNTER 2024-04-23 09:33 | Outpatient (CLI) | payer MEDICARE, BC, SELFPAY | END 2024-04-23 09:34 | disposition home or self-care (01) | LOC: NFLDREF 09:35 | PROVIDERS: PCP Family Medicine; Visit Provider Family Medicine | DX: E78.5 Hyperlipidemia, unspecified (principal); I10 Essential (primary) hypertension; E66.9 Obesity, unspecified; D72.820 Lymphocytosis (symptomatic); R73.03 Prediabetes | CPT/HCPCS: 80053; 80061 ==

== ENCOUNTER 2025-04-04 08:08 | Outpatient (CLI) | payer MEDICARE, BC, SELFPAY | END 2025-04-04 08:09 | disposition home or self-care (01) | LOC: NFLDREF 04-09 03:43 | PROVIDERS: PCP Family Medicine; Referring Provider Family Medicine; Visit Provider Family Medicine | DX: I10 Essential (primary) hypertension (principal); D72.820 Lymphocytosis (symptomatic); R73.03 Prediabetes; E78.5 Hyperlipidemia, unspecified | CPT/HCPCS: 80053; 80061 ==